=== PATIENT | female | born 1990 | race African-American/Black ===

== ENCOUNTER 2020-04-22 19:58 | Observation (INO) | payer OTHER ==
[2020-04-22] MEDS ORDERED: hydrALAZINE 20 MG/ML VIAL SLOW IVP PRN ×2 (20:21→21:02)
--- NOTE | 2020-04-22 20:36 | PDOC.FPROB ---
FMR OB H&P: HPI - History of Present Illness Chief Complaint: elevated BP, abdominal pain, feet swelling Indentification: 30 yo at 28.4 wga by unknown dating History of Present Illness: Patient has been having abdominal pain and bilateral feet swelling off and on since Thanksgiving that has been progressively worsening. She was at [employer] today trying to get a job and was told she did not qualify because her BP was elevated. Due to her history of pre-eclampsia, this concerned her so she came in. Her abdominal pain is lower and feels like the baby kicking hard. Denies contractions, RUQ/epigastric abdominal pain, LOF, vaginal bleeding. Reports some foul-smelling vaginal discharge lately. Denies headache, SOB. Reports some blurry vision but no scotoma or flashes. Endorses FM. Last appt was 03/21/2020. Primary Care Physician: Out of Town. Recently moved from [place]. Significant other got a job at [employer]. FMR OB H&P: Current - Care : 4 Para: 1021 Gestational age: 28.4 Due date: 07/11/2020 Course/Complications: HIV positive, diagnosed this , on antiretrovirals, reports undetectable viral load recently cHTN versus gHTN vs pre-E, taking labetalol 200mg BID. Taking HTN meds prior to . 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 - Surgical History Sx History: . Denies all other surgeries. - Social History Social History: Denies smoking, drinking, drugs including IV drugs. Recent move from [place]. - Family History Family History: denies FMR OB H&P: Medications - Current Home Medications: Medication Instructions Recorded Confirmed Type Acetaminophen [Tylenol Extra 2 tab PO PRN PRN 04/22/20 04/22/20 History Strength] Labetalol [Normodyne] 2 tab PO BID 04/22/20 04/22/20 History Pnv No.95/Ferrous Fum/Folic AC 1 tab PO DAILY 04/22/20 04/22/20 History [ Caplet] Allergies/Adverse Reactions: Allergies Allergy/AdvReac Type Severity Reaction Status Date / Time No Known Allergies Allergy Verified 04/22/20 20:38 FMR OB H&P: ROS - Review of Systems General: denies: fever/chills, weight/appetite/sleep changes, fatigue Eyes: reports: others (some blurry vision). denies: scotomas, floaters ENT: denies: sore throat Cardiovascular: denies: chest pain Respiratory: denies: cough, shortness of breath Gastrointestinal: reports: abdominal pain. denies: nausea, vomiting Genitourinary (Female): reports: vaginal discharge. denies: dysuria, hematuria, vaginal pain, vaginal bleeding, contractions Musculoskeletal: reports: swelling. denies: pain Neurologic: denies: seizures, weakness Integumentary: denies: rash Hematologic/Lymphatic: denies: prolonged or excessive bleeding Psychological: denies: depression, anxiety FMR OB H&P: Vital Signs - Maternal Vital signs: BP 157/90 HR 78 RR 20 Temp 98.8 - Heart Tones Baseline: 140 (reactive) Variability: moderate Acceleration: present Deceleration: absent FMR OB H&P: Physical Exam - Physical Exam General: NAD, awake, alert and oriented HEENT: normocephalic and atraumatic, no scleral icterus, grossly normal vision, grossly normal hearing Neck: supple, trachea midline Heart: RRR, normal S1/S2, no murmurs/rubs/gallops General: CTAB, no respiratory distress Abdomen: soft, gravid, non-tender Musculoskeletal: pulses present, FROM in all four extremities Neurological: DTR +2 (upper extremities), DTR +3 (lower extremities), no clonus, no focal deficit Skin: no rash, good tugor Lymphatic: no unusual bruising or bleeding Psychiatric: intact recent and remote memory, normal mood and affect FMR OB H&P: A/P Disposition: observe on L&D and monitor blood pressures. Bring in for observation overnight. Discussion: Date/Time: 04/22/202022 30 yo at 28.4 wga by unknown dating Elevated BP in setting of cHTN and hx of preeclampsia - continuous EFM - hydralazine prn - labetalol 300 mg BID , start in AM - CBC, CMP, protein/Cr pending - consider steroids if patient is not responding to BP meds Vaginal discharge - VP3 collected HIV-positive - taking antiretrovirals, may continue home meds while here - ask fiance to bring home meds as these are not likely on formulary Late transfer of care - seems pt had good follow up and care prior to her move. - Request records from [place] - get pt established w/ PCP here prior to d/c Diet: Heart healthy IVF: SL, PO hydration This H&P was discussed with Dr. Steele, who agrees with the above documentation and plan. Signature: Joel Carlos MD PGY-2 Addendum - Attending - Attending Attestation Date/Time: 04/23/20 5736 I personally evaluated the patient and discussed the management with Dr. Carlos. I agree with the History, Examination, Assessment and Plan documented above.
[2020-04-22 20:43] VITALS: BMI 36.6
[2020-04-22 20:48] LABS: #Eosinphils 0.2 thou/uL (0.0-0.7); #Lymphocytes 2.2 thou/uL (1.20-3.40); #Monocytes 0.9 thou/uL (0.11-0.59); #Neutrophils 8.1 thou/uL (1.40-6.50); %Basophils 0.2 % (0.0-1.0); %Eosinophils 1.8 % (0.0-10.0); %Lymphocytes 18.8 % (21.0-51.0); %Neutrophils 71.2 % (42.0-75.0); Hemoglobin 11.7 g/dL (12.0-16.0); Mean Corpuscular HGB CONC 35.7 g/dL (32.0-36.0); Mean Corpuscular Hemoglobin 33.4 pg (27.0-31.0); Mean Corpuscular Volume 93.7 fL (78.0-98.0); Mean Platelet Volume 7.7 fL (7.4-10.4); Platelet Count 204 thou/uL (130-400); RBC Distribution Width 12.9 % (11.5-14.5); White Blood Cell (WBC) Count 11.4 thou/uL (4.8-10.8)
[2020-04-22] MEDS ORDERED: Acetaminophen 500 MG TAB PO PRN (21:02)
[2020-04-22] MEDS ORDERED: Ondansetron PF 4 MG/2 ML Vial IVP PRN (21:02)
[2020-04-22] MEDS ORDERED: Promethazine HCl 25 MG/ML VIAL IM PRN (21:02)
[2020-04-22 21:08] LABS: ALT (SGPT) 11 U/L (8-55); AST (SGOT) 14 U/L (5-34); Albumin 2.6 g/dL (3.5-5.0); Alkaline Phosphatase 80 U/L (40-110); Anion Gap 12 mmol/L (10-20); BUN (Urea Nitrogen) 10 mg/dL (7.0-18.7); Bilirubin, Total Less than 0.2 mg/dL (0.2-1.2); Calc. Creatinine Clearance 138 mL/min (70-130); Calcium 8.3 mg/dL (7.8-10.44); Carbon Dioxide 21 mmol/L (22-29); Chloride 109 mmol/L (98-107); Globulin 3.2 g/dL (2.4-3.5); Glucose 96 mg/dL (70-105); Potassium 3.8 mmol/L (3.5-5.1); Protein, Total 5.8 g/dL (6.0-8.3); Sodium 138 mmol/L (136-145)
[2020-04-22 22:03] VITALS: TEMP 98.8
--- NOTE | 2020-04-23 00:16 | PDOC.BPN ---
- Brief Progress Note Encounter Date: 04/23/20 Encounter Time: 12:20 Labs: BV+, Julia+ CMP wnl. CBC w/ mildly elevated WBC, Hgb 11.7, platelets 204. Non-interpretable urine protein/creatinine ratio given patient's chronic proteinuria in setting of kidney disease. patient's HIV medicines include: Isentress (Raltegravir), abicavir/lamivudine 600-300. Angélica went home to bring meds here. Reviewed Rx interaction check and no interactions between antiretrovirals, labetalol, metronidazole, and clotrimazole found. 2 severe BPs noted over last 2 checks 30 min apart: hydralazine 10mg IV given.
[2020-04-23] MEDS ORDERED: hydrALAZINE 20 MG/ML VIAL SLOW IVP SCH (00:30)
[2020-04-23] MEDS: Betamet Acet/Betamet Na Ph 30 MG/5 ML VIAL IM SCH (01:35)
[2020-04-23 06:20] LABS: SARS-CoV-2 PCR by NAA Not Detected (NotDetected)
--- NOTE | 2020-04-23 06:26 | PDOC.OBAPN ---
FMR OB AP PN: Sub - Interval History Hospital Day: 2 Chief Complaint: elevated BPs Indentification: 30 at 28.5 wga Interval History: Sleeping comfortably. No pain/headache. BPs improved. FMR OB AP PN: Obj - Maternal Vital signs: BPs overnight: 166/91, 167/94-> treated w/ hydralazine 10 mg -> 156/86 160/85, 174/91 -> hydralazine 5 mg-> 144/70 Since falling asleep, pt has had BPs 130s/80s. - Heart Tones Baseline: 120 (reactive) Variability: moderate Acceleration: present Deceleration: absent [place] contractions every: NONE FMR OB AP PN: Exam - Physical Exam General: NAD HEENT: normocephalic and atraumatic, grossly normal hearing Heart: RRR, normal S1/S2 General: CTAB, no respiratory distress Abdomen: soft, gravid Psychiatric: intact recent and remote memory, normal mood and affect FMR OB AP PN: Data - Labs Lab results: Laboratory Results - last 24 hr 04/22/20 04/22/20 04/22/20 20:40 20:40 22:18 WBC 11.4 H RBC 3.50 L Hgb 11.7 L Hct 32.8 L MCV 93.7 MCH 33.4 H MCHC 35.7 RDW 12.9 Plt Count 204 MPV 7.7 Neutrophils % 71.2 Lymphocytes % 18.8 L Monocytes % 8.0 Eosinophils % 1.8 Basophils % 0.2 Neutrophils # 8.1 H Lymphocytes # 2.2 Monocytes # 0.9 H Eosinophils # 0.2 Basophils # 0.0 Sodium 138 Potassium 3.8 Chloride 109 H Carbon Dioxide 21 L Anion Gap 12 BUN 10 Creatinine 0.92 Estimated GFR (MDRD) 86 Glucose 96 Calcium 8.3 Total Bilirubin Less than 0.2 L AST 14 ALT 11 Alkaline Phosphatase 80 Serum Total Protein 5.8 L Albumin 2.6 L Globulin 3.2 Albumin/Globulin Ratio 0.8 L U Random Total Protein Urine Creatinine SARS CoV-2 Rapid Source Nasopharyngeal Swab SARS-CoV-2 RNA (PARTHA) Not Detected 04/22/20 04/22/20 22:25 22:25 WBC RBC Hgb Hct MCV MCH MCHC RDW Plt Count MPV Neutrophils % Lymphocytes % Monocytes % Eosinophils % Basophils % Neutrophils # Lymphocytes # Monocytes # Eosinophils # Basophils # Sodium Potassium Chloride Carbon Dioxide Anion Gap BUN Creatinine Estimated GFR (MDRD) Glucose Calcium Total Bilirubin AST ALT Alkaline Phosphatase Serum Total Protein Albumin Globulin Albumin/Globulin Ratio U Random Total Protein 1374 H Urine Creatinine 256.30 H SARS CoV-2 Rapid Source SARS-CoV-2 RNA (PARTHA) FMR OB AP PN: A/P Disposition: observe on antepartum this AM. Consider d/c later today. 2nd dose of steroids needs to be given later tonight or tomorrow morning. Discussion: Date/Time: 04/23/20 0625 30 yo at 28.4 wga by unknown dating Elevated BP in setting of cHTN and hx of preeclampsia CKD, chronic proteinuria - continuous EFM - hydralazine prn - labetalol 300 mg BID to start today - CBC, CMP WNL - elevated protein/creatinine, however difficult to interpret given chronic proteinuria/CKD per pt. She has had renal bx in the past with no clear cause. - due to persistently elevated BPs which may necessitate delivery, 1st dose of steroids given at 0130 on 04/23 BV & yeast infection - start metronidazole & clotrimazole vaginal cream - trich neg HIV-positive - taking antiretrovirals, may continue home meds while here - awaiting records to see when last viral load was taken. Per pt, last one was undetectable. Late transfer of care - awaiting records - get pt established w/ [facility] here prior to d/c Diet: Heart healthy IVF: SL, PO hydration This H&P was discussed with Dr. Steele, who agrees with the above documentation and plan. Signature: Joel Carlos MD PGY-2
[2020-04-23] MEDS: ABACAVIR PO SCH (09:09)
[2020-04-23] MEDS: LAMIVUDINE PO SCH (09:09)
[2020-04-23] MEDS: metroNIDAZOLE 500 MG TAB PO SCH ×2 (09:09→21:28)
[2020-04-23] MEDS: Labetalol 100 MG TAB PO SCH ×2 (09:09→21:28)
[2020-04-23] MEDS: Raltegravir Potassium 400 MG TAB PO SCH ×2 (09:09→21:28)
--- NOTE | 2020-04-23 09:22 | PRG ---
DATE OF SERVICE: 04/23/2020 Labor and Delivery Progress Note (Antepartum) TIME: Time is 0839, time of evaluation at bedside, roughly 0820. LOCATION: Labor and Delivery, bed 6. DIAGNOSES: 1. HIV positive known status. 2. 28 weeks and 2 days. 3. Prior section. 4. Chronic hypertension. 5. Chronic kidney disease. HOSPITAL COURSE: In brief, I have evaluated the patient at bedside along with Dr. Arenas, who is the on-call resident today. We had an in person checkout with Dr. Swathi Steele, and Dr. Carlos, who initially evaluated this patient on admission. I am aware of the patient's chronic multiple medical issues including HIV positive status. She is on highly active anti-retroviral therapy. PLAN: This morning, our plan is as follows: 1. OB ultrasound here for record. 2. I have ordered a viral load here for record in case delivery is necessary. 3. I reviewed with her the plan for repeat steroids at 24 hours from the , which would be roughly between 1 a.m. and 2 a.m. on the 24 of April. 4. I discussed with her, her diagnosis and the plan to continue her medications. 5. During my bedside evaluation, the patient informed me that she had not had a 1-hour glucose tolerance test with her usual physician. As she is over 28 weeks, and has already received one dose of steroids, I will not get the sugar test now as it is likely to be invalidated by the steroid administration. I did address this with her. 6. No acute evidence of emergent condition at this time. 7. The patient's blood pressure while in the room was systolic in the 140s, diastolics over 90s. Job ID: [id number]
--- NOTE | 2020-04-23 09:37 | PDOC.BPN ---
- Brief Progress Note BRIEF Sono Verbal Report: Sono with 3VC, normal 3 CH, EFW was 1189grams Fluid largest pocket 4
--- NOTE | 2020-04-23 09:48 | ULT ---
US OB Complete STANDARD History: Hypertension. care Comparison: None. Findings: Real-time grayscale, color and spectral analysis was performed transabdominal approach. Single viable intrauterine with average ultrasound age 28 week 5 day with estimated date of delivery July 16, 2020. The ultrasound age and clinical age are concordant. Estimated weight is 2 lbs. 10 oz., 20th percentile. Biometry: Biparietal diameter: 6.93 cm, 27 weeks 6 day Head circumference: 25.63 cm, 27 weeks 6 day Abdominal circumference: 24.48 cm, 28 week 5 day Femur length: 5.16 cm, 27 week 4 day Amniotic fluid index: 7 cm. The placenta is posterior and presentation is vertex. Visualized head, four-chamber heart, stomach, kidneys, cord insertion, bladder, spine, lips/nose, upp er extremities, lower extremity is, three-vessel cord are all normal. Heart rate documented at 139 bpm. Impression: 1. Low amniotic fluid index of 7 cm. 2. Single viable intrauterine with average ultrasound age 28 weeks 0 day with estimated roxana e of delivery July 16, 2020, concordant with clinical age.
--- NOTE | 2020-04-23 18:49 | PDOC.BPN ---
- Brief Progress Note BP checks Location [id number] Lab: VL still pending BPs have been mainly well controlled on labetolol 300mg po BID. There are some sporatic severe BPs but they look like they do not persist (note: BPs in QS) Last MP about 30 min ago was 135/73
[2020-04-23] MEDS ORDERED: Clotrimazole 2% 3 Day Vag Cr 22.2 GM TUBE VAG SCH (21:00)
[2020-04-24] MEDS: Betamet Acet/Betamet Na Ph 30 MG/5 ML VIAL IM SCH (01:47)
--- NOTE | 2020-04-24 06:05 | PDOC.BPN ---
- Brief Progress Note HD2 DISCHARGE NOTE LDR 6 28 weeks 6 days Now s/p BMZ x 2 S. Feels well. O. BPs have been controlled well, one severe range BP was while she was on her cuff (per RN). Viral Load still pending Afebrile. Pulse wnl PE: NAD Pelvic deferred Assessment: HIV Pos, CHTN, chronic renal disease with better BP control on labetolol 300mg po BID. Plan: 1. continue HAART. VL pending. 2. Dr Gabino Carlos with [facility] has agreed to have her follow up there with ID outpatient care 3. Home with same BP regiminine. 4. S/P BMZ 5. Will need serial JULIO CESAR sonos and frequent BP monitoring in clinic Likely home today
--- NOTE | 2020-04-24 06:34 | DIS ---
DATE OF ADMISSION: 04/22/2020 DATE OF DISCHARGE: 04/24/2020 PRINCIPAL DIAGNOSES: 1. Human immunodeficiency virus positive status. 2. at 28 weeks. 3. Chronic hypertension. 4. Chronic renal disease. HOSPITAL COURSE: In brief, the patient was admitted after having a having a blood pressure check in an ambulatory setting that found that she had severe range blood pressures. She has a history of known chronic hypertension. She was sent here for evaluation. She was given betamethasone in case there was a need for urgent delivery. During her observation stay, she also had an ultrasound which showed appropriate growth with an estimated weight of 1180 g with the largest fluid pocket of 4 cm. She is on highly active anti-retroviral therapy for her HIV status, as she was getting care from another location. We ordered a viral load, although she stated that recently it was done at that other location (although we do not have records) and that was undetectable. She did receive her betamethasone dose here. During her evaluation, she was evaluated by Dr. Justina Carlos with [facility] and physicians, who agree to follow her up as an outpatient after discharge. In terms of blood pressure, her blood pressures remained under good control with labetalol 300 mg p.o. b.i.d. She had occasional sporadic severe range of blood pressures, but these were usually due to cuff malposition or her line on the cuff. As she was 28 weeks and 6 days with no evidence of progressive illness, and she was stabilized on oral medication, the plan was made to discharge her home on April 24, 2020 with [facility] and physicians followup. Also as an outpatient, she will have Dr. Hager consulted to continue her care. We will continue with her highly active anti-retroviral therapy and her labetalol as described. I have seen the patient and agree with the plan. The patient is compliant and will seek followup. She will have frequent blood pressure monitoring in the outpatient clinic to closely monitor blood pressure results. Job ID: [id number]
[2020-04-24] MEDS: Labetalol 100 MG TAB PO SCH (09:14)
[2020-04-24] MEDS: Raltegravir Potassium 400 MG TAB PO SCH (09:15)
[2020-04-24] MEDS: metroNIDAZOLE 500 MG TAB PO SCH (09:15)
[2020-04-24] MEDS: ABACAVIR PO SCH (09:16)
[2020-04-24] MEDS: LAMIVUDINE PO SCH (09:16)
[2020-04-24 09:18] VITALS: BP 127/74
[2020-04-25 15:16] LABS: HIV-1 Quantitative, RNA PCR <20 copies/mL (.)
== END 2020-04-24 09:33 | disposition home health service (06) ==
LOC: L&D/OP 19:58 → L&D 21:02
PROVIDERS: ADMIT Obstetrics & Gynecology; ATTEND Obstetrics & Gynecology
DX: O10.213 Pre-existing hypertensive chronic kidney disease complicating pregnancy, third trimester (principal); I12.9 Hypertensive chronic kidney disease with stage 1 through stage 4 chronic kidney disease, or unspecified chronic kidney disease; N18.9 Chronic kidney disease, unspecified; O98.713 Human immunodeficiency virus [HIV] disease complicating pregnancy, third trimester; O23.593 Infection of other part of genital tract in pregnancy, third trimester; B96.89 Other specified bacterial agents as the cause of diseases classified elsewhere; O98.813 Other maternal infectious and parasitic diseases complicating pregnancy, third trimester; B37.9 Candidiasis, unspecified; Z3A.28 28 weeks gestation of pregnancy; Z21 Asymptomatic human immunodeficiency virus [HIV] infection status; Z79.899 Other long term (current) drug therapy; Z20.822 Contact with and (suspected) exposure to COVID-19
CPT/HCPCS: 36415; 76805; 80053; 82570; 84156; 85025; 87480; 87510; 87536; 87635; 87660; 96372; 96374; 96376; 99285; G0378; J0360; J0702; U0003; U0005

== ENCOUNTER 2020-05-14 03:38 | Inpatient (IN) | payer OTHER ==
[2020-05-14] MEDS ORDERED: hydrALAZINE 20 MG/ML VIAL ONE (04:01)
[2020-05-14] MEDS: hydrALAZINE 20 MG/ML VIAL SLOW IVP PRN ×2 (04:28→22:25)
[2020-05-14 04:35] VITALS: TEMP 98.8; BMI 36.6
[2020-05-14] MEDS ORDERED: Labetalol HCl 100 MG/20 ML VIAL SLOW IVP SCH ×3 (05:00→10:30)
[2020-05-14 05:24] LABS: #Basophils 0.1 thou/uL (0.0-0.2); #Eosinphils 0.1 thou/uL (0.0-0.7); #Monocytes 0.8 thou/uL (0.11-0.59); #Neutrophils 6.3 thou/uL (1.40-6.50); %Basophils 0.5 % (0.0-1.0); %Eosinophils 1.4 % (0.0-10.0); %Lymphocytes 21.4 % (21.0-51.0); %Monocytes 8.2 % (0.0-10.0); %Neutrophils 68.5 % (42.0-75.0); Hemoglobin 11.8 g/dL (12.0-16.0); Mean Corpuscular HGB CONC 34.1 g/dL (32.0-36.0); Mean Corpuscular Hemoglobin 31.3 pg (27.0-31.0); Mean Corpuscular Volume 91.6 fL (78.0-98.0); Platelet Count 206 thou/uL (130-400); RBC Distribution Width 12.4 % (11.5-14.5); Red Blood Cell (RBC) Count 3.77 mill/uL (4.20-5.40); White Blood Cell (WBC) Count 9.2 thou/uL (4.8-10.8)
[2020-05-14 05:40] LABS: ALT (SGPT) 21 U/L (8-55); AST (SGOT) 23 U/L (5-34); Albumin 2.3 g/dL (3.5-5.0); Alkaline Phosphatase 105 U/L (40-110); Anion Gap 14 mmol/L (10-20); BUN (Urea Nitrogen) 14 mg/dL (7.0-18.7); Bilirubin, Total 0.2 mg/dL (0.2-1.2); Calc. Creatinine Clearance 137 mL/min (70-130); Calcium 8.7 mg/dL (7.8-10.44); Carbon Dioxide 18 mmol/L (22-29); Chloride 110 mmol/L (98-107); Globulin 3.2 g/dL (2.4-3.5); Glucose 84 mg/dL (70-105); Potassium 3.8 mmol/L (3.5-5.1); Protein, Total 5.5 g/dL (6.0-8.3); Sodium 138 mmol/L (136-145); Uric Acid 6.9 mg/dL (2.6-6.0)
[2020-05-14] MEDS ORDERED: Bicitra 30 ML UDCUP PO PRN (05:47)
[2020-05-14] MEDS ORDERED: Acetaminophen 500 MG TAB PO PRN (05:47)
[2020-05-14] MEDS ORDERED: Promethazine HCl 25 MG/ML VIAL IM PRN ×2 (05:47→11:34)
[2020-05-14] MEDS ORDERED: Ondansetron PF 4 MG/2 ML Vial IVP PRN ×2 (05:47→11:34)
[2020-05-14] MEDS ORDERED: Famotidine/PF 20 mg/2ml Vial SLOW IVP PRN (05:47)
[2020-05-14] MEDS ORDERED: Docusate 100 MG CAP PO PRN (05:47)
--- NOTE | 2020-05-14 05:47 | PDOC.BPN ---
- Brief Progress Note Encounter Date: 05/14/20 Encounter Time: 05:45 per sono: EFW 3lb CYNTHIA 3.4 cm Doppler S:D 2.85 Admit to L&D. Likely plan for repeat . Continue to control BP w/ IV labetalol.
--- NOTE | 2020-05-14 05:48 | PDOC.FPROB ---
FMR OB H&P: HPI - History of Present Illness Chief Complaint: high blood pressure History of Present Illness: Pt is a 30 yo F at 31.5 wga by 7.1 wk sono with PMH HIV, HSV, cHTN, pre E with previous , autoimmune kidney disease who presents to L&D after waking up feeling short of breath. She subsequently took her BP at home and found it to be 200 SBP so she came to the hospital. She endorses compliance with her home Labetalol 300mg TID for her cHTN. She endorses good movement, no contractions, VB, VD, LOF. Primary Care Physician: Terrance FMR OB H&P: Current - Care : 4 Para: 1 Gestational age: 31.5 Due date: 07/11/20 Dating Criteria: 7.1 wk sono - OB Labs Blood type: O RH: positive Antibody Screen: negative HIV: positive RPR: negative HepBsAg: negative Rubella: immune Gonorrhea: negative Chlamydia: negative H&H: 11.4/32.7 Platelets: 222 Additional labs: CD4 count 726 Absolute lymphocytes 1879 - Additional Ultrasound Additional: growth restriction at 3%, low-normal CYNTHIA at 7.5 with MVP at 3.1 FMR OB H&P: History - Past Medical History PMH: HIV, HSV, autoimmune kidney disease, cHTN - OB History OB History: On labetalol 300 mg TID for cHTN Supposed to start Valtrex at 33 wga for history of HSV OB hx: spontaneous at 8 weeks in 2019 history of c section 2/2 pre E in 2006 elective AB in 2004 - 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 Menarche 12 History of HSV last outbreak 10 years ago - Surgical History Sx History: c section 2006 D&C elective ab - Social History Social History: former smoker: 6-12 months ago denies drinking history - Family History Family History: mother with hole in her heart FMR OB H&P: Medications - Current Home Medications: Medication Instructions Recorded Confirmed Type Pnv No.95/Ferrous Fum/Folic AC 1 tab PO DAILY 04/22/20 05/14/20 History [ Caplet] Abacavir Sulfate/Lamivudine 1 each PO DAILY 05/14/20 05/14/20 History [Abacavir-Lamivudine 600-300 mg] Labetalol [Normodyne] 300 mg PO TID 05/14/20 05/14/20 History Raltegravir Potassium [Isentress] 400 mg PO BID 05/14/20 05/14/20 History Allergies/Adverse Reactions: Allergies Allergy/AdvReac Type Severity Reaction Status Date / Time No Known Allergies Allergy Verified 05/14/20 04:03 FMR OB H&P: ROS - Review of Systems General: denies: fever/chills, weight/appetite/sleep changes Eyes: reports: vision changes (intermittent blurry vision) Cardiovascular: denies: chest pain, edema Respiratory: reports: shortness of breath. denies: cough Gastrointestinal: denies: abdominal pain, nausea, vomiting Genitourinary (Female): denies: incontinence, dysuria, vaginal discharge, vaginal bleeding, contractions, vaginal pressure Musculoskeletal: denies: tenderness, swelling, decrease range of motion Neurologic: denies: syncope, seizures, weakness, headache Psychological: denies: depression, anxiety FMR OB H&P: Vital Signs - Maternal Vital signs: Vital Signs - First Documented Temp Pulse Resp BP Pulse Ox 98.8 F 60 18 201/115 H 98 05/14/20 04:01 05/14/20 04:01 05/14/20 04:01 05/14/20 04:01 05/14/20 04:01 - Heart Tones Baseline: 120 Variability: moderate Acceleration: present Deceleration: absent Category: category 1 [place] contractions every: no contractions FMR OB H&P: Physical Exam - Physical Exam General: NAD, awake, alert and oriented HEENT: normocephalic and atraumatic, PERRLA, EOMI Neck: supple Breast: no skin changes Heart: RRR, normal S1/S2, pulses present, no edema General: CTAB, no respiratory distress, good air movement Abdomen: soft, gravid, non-tender Musculoskeletal: pulses present, FROM in all four extremities Neurological: cranial nerves II through XII intact, DTR +2, no focal deficit Skin: good tugor, capillary refill <2 seconds Psychiatric: intact recent and remote memory, good judgement and insight, normal mood and affect FMR OB H&P: Results - Labs Lab results: Laboratory Results - last 24 hr 05/14/20 05/14/20 05/14/20 05:07 05:07 05:07 WBC 9.2 RBC 3.77 L Hgb 11.8 L Hct 34.6 L MCV 91.6 MCH 31.3 H MCHC 34.1 RDW 12.4 Plt Count 206 MPV 8.0 Neutrophils % 68.5 Lymphocytes % 21.4 Monocytes % 8.2 Eosinophils % 1.4 Basophils % 0.5 Neutrophils # 6.3 Lymphocytes # 2.0 Monocytes # 0.8 H Eosinophils # 0.1 Basophils # 0.1 Sodium 138 Potassium 3.8 Chloride 110 H Carbon Dioxide 18 L Anion Gap 14 BUN 14 Creatinine 0.93 Estimated GFR (MDRD) 85 Glucose 84 Uric Acid 6.9 H Calcium 8.7 Total Bilirubin 0.2 AST 23 ALT 21 Alkaline Phosphatase 105 Lactate Dehydrogenase 209 Serum Total Protein 5.5 L Albumin 2.3 L Globulin 3.2 Albumin/Globulin Ratio 0.7 L FMR OB H&P: A/P Disposition: 30 yo F at 31.5 wga by 7.1 wk sono who presents with high blood pressure #elevated BP -patient with history of cHTN on Labetalol 300mg TID at home -history of Pre E resulting in a c section with previous -will order sono for growth with umbilical dopplers and CYNTHIA -order Pre-E labs -Hydralazine, Labetalol PRN -continue home meds #HIV -aware, well controlled on HAART -CD4 in clinic recently 726 #History of HSV -aware, start ppx at 36 wga or 4 weeks prior to delivery #Autoimmune kidney disease -aware #IUGR -aware, patient at 3rd percentile -sono as above Dispo: pending labs and sono Discussion: Date/Time: 05/14/20 9943 This H&P was discussed with Dr. Carlos and Dr. Carlisle who agree with the above documentation and plan. Addendum - Attending - Attending Attestation Date/Time: 05/14/20 9286 I personally evaluated the patient and discussed the management with Dr. Ramon/Terrance I agree with the History, Examination, Assessment and Plan documented above with any addition or exceptions noted below - 30 yo @31.5 weeks with cHTN, autoimmune nephropathy and HIV presented c/o SOB and after checking BP at home and found it to be very elevated. (+)WERNER (+) FM. Afebrile BP 160-200/90-103 A/P: 1) IUP @ 31.5 weeks with cHTN with superimposed pre-eclampsia- multiple severe range BPs; has received several doses of labetolol with improvement. Will plan to proceed with repeat . Started on magnesium. Monitor I/Os. 2) HIV- undetectable viral load on antiretrovirals. Will start AZT per protocol. 3) cHTN- continue labetolol at decreased dose. 4) Autoimmune nephropathy - continue to monitor GFR
[2020-05-14] MEDS ORDERED: Zidovudine 200 MG/20 ML VIAL IVPB SCH ×2 (06:00)
[2020-05-14] MEDS ORDERED: hydrALAZINE 20 MG/ML VIAL SLOW IVP SCH ×2 (06:00→10:30)
[2020-05-14] MEDS ORDERED: CEFAZOLIN 2 GM in Premix Bag 1 BAG IVPB SCH (06:00)
[2020-05-14] MEDS ORDERED: Calcium Gluc 4.6 MEQ/10 ML (100 MG/ML) SLOW IVP PRN (06:16)
[2020-05-14] MEDS ORDERED: Magnesium Sulfate 20 gm/500 ml 20 GM/500 ML BAG ONE (06:25)
[2020-05-14 06:29] LABS: HBSAg Index 0.15 S/CO (0-0.99); Hep B Surf Ag Non-Reactive S/CO (NonReactive); Syphilis Antibody Nonreactive (Nonreactive); Syphilis Antibody Index 0.01 S/CO (<1.00 Non-Reactive)
[2020-05-14] MEDS ORDERED: Magnesium Sulfate 20 GM/WATER 500 ML BAG IVPB SCH (06:30)
[2020-05-14] MEDS: Magnesium Sulfate 20 gm/500 ml 20 GM/500 ML BAG IVPB SCH ×2 (06:44→14:46)
--- NOTE | 2020-05-14 07:02 | PDOC.BPN ---
- Brief Progress Note Patient started on Mag, AZT ordered, no indication for steroids as patient received 3 weeks ago Plan for c section later today, at least 3 hours after AZT. Plan discussed with Dr Carlos and Dr Santoyo who agree
[2020-05-14] MEDS ORDERED: Zidovudine 400 MG in Dextrose 5% in Water 250 ML IVPB SCH (07:30)
[2020-05-14 08:10] LABS: SARS-CoV-2 NAA Rapid Test Not Detected (NotDetected)
[2020-05-14 08:12] LABS: Creatinine, Urine 74.16 mg/dL (47-110)
[2020-05-14] MEDS: Lactated Ringer's 1,000 ML IV SCH ×2 (09:00→23:03)
[2020-05-14] MEDS ORDERED: Morphine PF 10 MG/10 ML VIAL ONE (09:57)
[2020-05-14] MEDS ORDERED: Ketorolac Tromethamine 30 MG/ML VIAL ONE (09:57)
[2020-05-14] MEDS ORDERED: Oxytocin 10 UNITS/ML VIAL ONE ×2 (09:57→11:01)
[2020-05-14] MEDS ORDERED: PHENYLEPHRINE-NS 100 MCG/ML 10 ML SYRINGE ONE ×2 (09:57→11:21)
[2020-05-14] MEDS ORDERED: Ondansetron PF 4 MG/2 ML Vial ONE (09:57)
[2020-05-14] MEDS ORDERED: Fentanyl 100 MCG/2 ML VIAL ONE (09:57)
--- NOTE | 2020-05-14 09:57 | PDOC.BPN ---
- Brief Progress Note Encounter Date: 05/14/20 Encounter Time: 09:50 Patient having severe pressures x2. Very early this AM hydralazine 5 and 10 were given followed by labetalol 20, 40, and 80 mg respectively. Will give hydralazine 10mg x1 now. Continue magnesium, AZT, and LR. Plan for at 11:00.
--- NOTE | 2020-05-14 10:55 | ULT ---
LIMITED OBSTETRICAL ULTRASOUND FOLLOWUP: Date: 05/14/2020 INDICATION: High maternal blood pressure. History of oligohydramnios and IUGR. FINDINGS: There is a single, live intrauterine gestation in vertex presentation. The placenta is posterior. The cervix was not well seen. The CYNTHIA was 3.4 cm. Cardiac activity was 144 beats/minute. Sampled umbilic al artery demonstrated a low resistance waveform with peak systolic velocity of 43.9 cm/second, resis tive index of 0.65, and a systolic/diastolic ratio of 2.85. Biparietal diameter was 7.35 cm, giving an estimated gestational age of 29 weeks and 3 days. Head circumference was 26.87 cm, giving an estimated gestational age of 29 weeks and 2 days. Abdominal circumference was 22.76 cm, giving an estimated gestational age of 28 weeks and 5 days. Femoral length was 5.64 cm, giving an estimated gestational age of 29 weeks and 5 days. Estimated weight is 1,353 gm +/- 200 gm (3 lbs. 0 oz. +/- 7 oz.) (first percentile). The average gestational age by ultrasound is 29 weeks and 2 days with an estimated due date is 2020. Clinical age is 31 weeks and 5 days with estimated due date of 07/11/2020. Limited visualization of the bladder, stomach, and kidneys were unremarkable appearing. IMPRESSION: 1. Single, live intrauterine gestation in vertex presentation. 2. Small for gestational age. 3. Oligohydramnios. POS: BH
[2020-05-14] MEDS ORDERED: Promethazine HCl 25 MG/ML VIAL ONE (11:14)
[2020-05-14] MEDS ORDERED: Meperidine HCl/PF 25 MG/ML VIAL SLOW IVP PRN (11:34)
[2020-05-14] MEDS ORDERED: Promethazine HCl 25 MG SUPP PR PRN (11:34)
[2020-05-14] MEDS ORDERED: Naloxone HCl 0.4 mg/ml Vial IVP PRN ×2 (11:34)
[2020-05-14] MEDS ORDERED: Ondansetron HCl/PF 4 MG/2 ML Vial IVP PRN (11:34)
[2020-05-14] MEDS ORDERED: diphenhydrAMINE 50 MG/ML VIAL IVP PRN (11:34)
[2020-05-14] MEDS ORDERED: Naloxone HCl 0.4 mg/ml Vial IV PRN (11:34)
[2020-05-14] MEDS ORDERED: HYDROmorphone 2 MG/ML VIAL SLOW IVP PRN (11:34)
[2020-05-14] MEDS ORDERED: L&D-Morphine 4 MG/ML VIAL SLOW IVP PRN (11:34)
[2020-05-14] MEDS ORDERED: Communication Order-Pharmacy FS SCH (11:45)
--- NOTE | 2020-05-14 12:56 | PDOC.OPDEL ---
OB Operative/Delivery Note Anesthesia: spinal - Findings A Sex: female - 1 min: 1 - 5 min: 9 - Additional Findings/Plan Compilations/Other Findings: Date of Procedure: 05/14/2020 Resident Surgeon: Justina Carlos, PGY2 (continuity) Brim Shaper Surgeon: Miriam Blanco, PGY1 Attending Surgeons: Dr. Santoyo, Dr. Guru Rutledge Procedure: Repeat low vertical caesarean section with hysterotomy involving active segment of uterus Preoperative Diagnosis: 1) intrauterine 2) Previous x1 3) Chronic hypertension with superimposed pre-eclampsia with severe features 4) Oligohydramnios 5) Intrauterine growth restriction 6) HIV-1 positive, compliant with anti-retrovirals 7) C1Q nephropathy Postoperative Diagnosis: 1) intrauterine , delivered 2) Previous x1 3) Chronic hypertension with superimposed pre-eclampsia with severe features 4) Oligohydramnios 5) Intrauterine growth restriction 6) HIV-1 positive, compliant with anti-retrovirals 7) C1Q nephropathy Anesthesia: spinal Quantitative Blood Loss: 975 ml Complications: None Specimens: 1. Grossly normal placenta sent for pathology 2. Cord blood sent to lab for blood type 3. Cord gases Findings: Grossly normal albeit female with Apgars of 1 and 9. C PAP resuscitation required and sent to NICU. Drains: Lino to gravity draining clear urine Indications: The patient is a 30 year old female at 31.5 weeks gestation dated by LMP consistent with 7.2 week sono who presented to L&D for elevated blood pressures and found to have oligohydramnios and pre-eclampsia with severe features. Procedure in Detail: After risks, benefits, and alternatives were explained to the patient, she gave informed consent. Pre-operative antibiotics included Cefazolin 2 gram IV and zidovudine 2 mg/kg loading dose followed by 1 mg/kg/hr for at least 3 hours prior to delivery. Antepartum events included course of steroids (x2) for lung maturity on 04/22/2020, so this was not repeated on this admission. Magnesium IV was started for pre-eclampsia. The patient was taken to the operating room, and spinal anesthesia was initiated. She was placed in the supine position with a left tilt and prepped and draped in usual sterile fashion. A Pfannenstiel incision was made with a scalpel and carried down to the level of the fascia which was sharply nicked. The fascial cut was extended bilaterally with Pepe scissors. The inferior and superior edges of the cut fascial edges were elevated with Pretty clamps, and the underlying rectus muscles were sharply dissected free. There were extensive adhesions between the fascia and rectus muscles. The recti were divided digitally and retracted manually. The peritoneum was entered using hemostats and Metzenbaum scissors. Care was taken to identify and avoid the bladder. Bladder blade was placed. Adhesions were noted between abdominal wall and the uterus, especially on the left side of the uterus. Several of these were taken down using Bovie cautery. A low vertical incision was made with the scalpel, and the uterus was entered bluntly in the midline. Amniotomy was performed with Allis clamp; clear fluid was seen. The hysterotomy was extended manually. To create room due to adhesions, the hysterotomy was extended superiorly into the active uterine segment with bandage scissors. The infant was noted to be vertex and was easily delivered by fundal pressure. Nuchal cord x1. Cord was immediately clamped and cut, and the female infant was taken to the NICU team at the [facility]. Cord segment was clamped for cord gases. Cord blood was obtained. Placenta was delivered spontaneously with fundal massage and cord traction. Placenta was found to be intact with 3 vessel cord and sent to pathology. Attempt was made to externalize the uterus, but this was not possible due to adhesions. The endometrium was curetted with a dry lap. The uterus was closed in two layers, first with a running locking #0 Chromic suture followed by a running non-locking #0 Chromic suture in a baseball stitch fashion. Two figure of eight sutures using #0 Chromic were used to achieve hemostasis. The abdomen was irrigated with saline and suctioned free of clots. Arrista powder was placed over the hysterotomy. The abdominal muscles and underside of the fascia were carefully inspected for bleeders, and all bleeders were cauterized. The remaini ng Arrista powder was used on rectus muscles. The area around inferior aspect of the rectus muscles was again irrigated and suctioned free of clots. The fascia was closed with a running non-locking 0-Vicryl suture with the exception of locking the first stitch at each corner. The subcutaneous tissue was irrigated, and bleeders were cauterized. The subcutaneous spaced was closed using 2-0 plain gut suture in an interrupted fashion. The skin was approximated with emily, and a pressure dressing was placed. All counts were correct. The patient tolerated the procedure well and was taken to the LICU in stable condition. Patient is to remain on magnesium for 24 hours . Post delivery plan: recovery in LICU Addendum - Attending - Attending Attestation Date/Time: 05/14/20 [id number] I was present, assisted and supervised the repeat with low vertical uterine incision for this 30 yo @31.5 weeks for cHTN with superimposed pre-eclampsia with severe features. Viable female in vertex presentation. Apgars 1/9. QBL 975 mL. Residents: Terrance/Bella
--- NOTE | 2020-05-14 16:36 | PDOC.BPN ---
- Brief Progress Note Encounter Date: 05/14/20 Encounter Time: 16:36 Magnesium Check and 4 hr PP C/S check S: Patient doing well, no acute concerns. She denies WERNER, vision changes, difficulty breathing, abdominal pain, vaginal bleeding. O: VS: BP Max SBP: 150, Max DBP 96 UOP: 100 over last 3 hours (30, 40, 30) Exam: Cardiac: RRR no MRG Pulm: CTAB Abdomen: incision bandaged, CDI, +BS, no tenderness, soft, nondistended Neuro: Patellar reflexes 2+ bilaterally, no ankle clonus A/P: Post op repeat low vertical CS - doing well post op, denied BM - pain well controlled - Incision CDI - continue current management cHTN on magnesium - Severe range pressures frequently before delivery - Elevated BP with no severes while on Mag - continue mag, monitor UOP closely - Consider Lasix if UOP decreases-2 consecutive hours of 30ml or less UOP Discussed with Dr. Santoyo
--- NOTE | 2020-05-14 21:05 | PDOC.BPN ---
- Brief Progress Note Mag check has had two readings of severe range pressures 168/97 at 1911 and 169/92 at 2040 no PRN meds given urine output 175mL/3 hours no symptoms of WERNER, SOB, CP, RUQ pain, nausea PE: A&Ox3, non labored breathing, no abdominal pain or tenderness to palpation, no LE edema, reflexes 2+ Repeat check in 4 hours.
[2020-05-14] MEDS: Ketorolac Tromethamine 30 MG/ML VIAL IVP SCH (21:53)
[2020-05-14] MEDS ORDERED: Labetalol 100 MG TAB PO SCH (22:45)
[2020-05-14 23:03] VITALS: BP 151/84
[2020-05-15] MEDS: Magnesium Sulfate 20 gm/500 ml 20 GM/500 ML BAG IVPB SCH (00:53)
--- NOTE | 2020-05-15 02:27 | PDOC.BPN ---
- Brief Progress Note Mag check BP improved at 117/66 and 115/63 as last 2 readings. no PRN meds given urine output 50 mL/hr and 75 mL/hr as last recorded no symptoms of WERNER, SOB, CP, RUQ pain, nausea. resting comfortably in bed sleeping PE: A&Ox3, non labored breathing, no abdominal pain or tenderness to palpation, no LE edema, reflexes 2+ Repeat check in 4 hours. Will give 20IV Lasix for poor urine output.
[2020-05-15] MEDS ORDERED: Furosemide 20 MG/2 ML VIAL SLOW IVP SCH (02:30)
[2020-05-15] MEDS: Ketorolac Tromethamine 30 MG/ML VIAL IVP SCH ×2 (04:41→07:15)
--- NOTE | 2020-05-15 05:33 | PDOC.BPN ---
- Brief Progress Note [facility] check BP improved at 119-134/70. no PRN meds given urine output 50mL/hr, 50 mL/hr and 75 mL/hr as last recorded no symptoms of WERNER, SOB, CP, RUQ pain, nausea. resting comfortably in bed sleeping PE: A&Ox3, non labored breathing, no abdominal pain or tenderness to palpation, no LE edema, reflexes 2+ Repeat check in 4 hours. [facility] will have been running for 24 hours at noon on 05/15. Lasix has not been given yet, so will follow up urine output response with that 20mgIV dose at next check.
[2020-05-15] MEDS ORDERED: Ibuprofen 800 MG TAB PO SCH (06:00)
--- NOTE | 2020-05-15 06:03 | PDOC.PP ---
Post Progress Note Post Day #: 1 Subjective: Patient had severe range pressures around 5 pm, 7pm, and 1030 pm last night. She was given her oral labetalol and hydralazine push. Lasix given when in room. Pressures have been well controlled <140/90 since 1030 pm. Patient resting comfortably. PO intake tolerated: yes (clears only) Flatus: no Ambulation: no Vital Signs (12 hours) Pulse BP 05/14/20 23:02 80 151/84 H 05/14/20 22:25 74 172/102 H Weight Weight 99.79 kg - Physical Examination General: NAD Cardiovascular: no m/r/g Respiratory: clear to auscultation bilaterally, non-labored breathing Abdominal: + bowel sounds, lochia (minimal), no distention, appropriately TTP Skin: CS incision dry & intact, no rash (dressing not disturbed) Neurological: no gross focal deficits (DTRs 1+, no clonus) Result Diagrams: 05/15/20 08:50 05/14/20 05:07 Additional Labs: Post Labs Hep Bs Antigen Non-Reactive S/CO (NonReactive) 05/14/20 05:07 Blood Type O POSITIVE 05/14/20 06:22 - Assessment/Plan 30 yo G4 now P0222 delivered at 31.5 wga: POD #1 s/p repeat low vertical C/S - postop hgb pending, QBL 975mL, minimal bleeding overnight - awaiting ambulation and to tolerate PO since still on magnesium. cHTN, superimposed pre-eclampsia w/ severe features - on magnesium, started 3-4 hours prior to delivery, discontinue at 1200 on 05/15 - BPs improved with oral labetalol, continue home dose, consider BID if pressur es running low - urine output 50-75 mL/hour. Lasix given this AM. Continue to monitor. - Consider adding HCTZ vs losartan/HCTZ vs other HTN med HIV-1 positive status - continue HAART immediately. - do not recommend . Donor milk preferred. C1q nephropathy - nephrology f/u outpatient Dispo: continue inpatient mgmt. Will need to be transferred to [facility]. in the NICU, also plan for transfer to [facility]. Addendum - Attending - Attending Attestation Date/Time: 05/15/20 1001 I personally evaluated the patient and discussed the management with Dr. Carlos I agree with the History, Examination, Assessment and Plan documented above with any addition or exceptions noted below - Patient complaining of throat feeling swollen. Denies any pain or difficulty swallowing. Afebrile VSS. U/O 30-50mL/hr improved after lasix to 150-200 mL A/P: 1) POD #1 s/p repeat C/S with low vertical incision - continue current care. 2) cHTN with superimposed pre-eclampsia - continue magnesium; AM labs pending. Continue to monitor urine output. 3) HIV- resume antiretrovirals. 4) Possible esophagitis- will give trial of nystatin 5) C1Q nephropathy- continue to monitor.
[2020-05-15] MEDS ORDERED: HYDROcodone/Acetaminophen 5/325 mg Tablet PO PRN ×2 (06:13)
[2020-05-15] MEDS ORDERED: Magnesium Sulfate 20 gm/500 ml 20 GM/500 ML BAG IVPB SCH (06:13)
[2020-05-15] MEDS ORDERED: Acetaminophen 325 MG TAB PO PRN (06:13)
[2020-05-15] MEDS ORDERED: Lanolin Ointment 7 GM TUBE TOP PRN (06:13)
[2020-05-15] MEDS ORDERED: Calcium Gluconate 4.6 MEQ in Sodium Chloride 0.9% 100 ML IVPB PRN (06:13)
[2020-05-15] MEDS ORDERED: Ondansetron PF 4 MG/2 ML Vial IVP PRN (06:13)
[2020-05-15] MEDS ORDERED: hydrALAZINE 20 MG/ML VIAL SLOW IVP PRN (06:13)
[2020-05-15] MEDS ORDERED: Raltegravir Potassium 400 MG TAB PO SCH ×2 (06:45→21:00)
[2020-05-15] MEDS ORDERED: Docusate Calcium (SURFAK) 240 MG CAP PO SCH ×2 (06:45→21:00)
[2020-05-15] MEDS ORDERED: Labetalol 100 MG TAB PO SCH ×3 (06:45→21:00)
[2020-05-15] MEDS ORDERED: Ferrous Sulfate 325 MG TAB PO SCH ×2 (06:45→21:00)
--- NOTE | 2020-05-15 08:20 | PDOC.BPN ---
- Brief Progress Note Encounter Date: 05/15/20 Encounter Time: 08:20 30 yo G4 now P0222 delivered at 31.5 wga: Mag check BP ranged 100-130/70s, one elevated at 145/85 no PRN meds given urine output 300 ml/hr, net -175. S/p Lasix 20 this am no symptoms of WERNER, SOB, CP, RUQ pain, nausea. resting comfortably in bed sleepi ng PE: A&Ox3, non labored breathing, no abdominal pain or tenderness to palpation, no LE edema, reflexes 2+ Mag will have been running for 24 hours at noon on 05/15. Repeat check in 4 hours
--- NOTE | 2020-05-15 08:42 | PDOC.DS.DS ---
Provider Date of Admission: 05/14/20 08:24 Admitting Provider: Betsy Santoyo MD Primary Care Physician: CLAUDIA Moy Hospital Course: 30 yo G4 now P0222 delivered viable F at 31.5 wga via rLVCS at 1140 on 05/14 Lab Results: 05/14/20 05:07 05/14/20 05:07 Abnormal Lab Results - Last 48 hrs 05/14/20 05:07: Chloride 110 H, Carbon Dioxide 18 L, Uric Acid 6.9 H, Serum Total Protein 5.5 L, Albumin 2.3 L, Albumin/Globulin Ratio 0.7 L 05/14/20 05:07: RBC 3.77 L, Hgb 11.8 L, Hct 34.6 L, MCH 31.3 H, Monocytes # 0.8 H 05/14/20 07:30: U Random Total Protein 372 H Vitals: Vital Signs (12 hours) Pulse BP 05/15/20 07:48 80 151/84 H 05/14/20 23:02 80 151/84 H 05/14/20 22:25 74 172/102 H Weight Weight 99.79 kg Physical Exam: The patient was seen and examined on the day of discharge. Problem Assessment: Patient on mag due to preE superimposed on cHTN. Next mag check at 1200 when mag will be discontinued after 24 hours. Urine output improved. Will transfer patient to [facility] for continued care. Plan Home Medications: Medication Instructions Recorded Confirmed Type Pnv No.95/Ferrous Fum/Folic AC 1 tab PO DAILY 04/22/20 05/14/20 History [ Caplet] Abacavir Sulfate/Lamivudine 1 each PO DAILY 05/14/20 05/14/20 History [Abacavir-Lamivudine 600-300 mg] Labetalol [Normodyne] 300 mg PO TID 05/14/20 05/14/20 History Raltegravir Potassium [Isentress] 400 mg PO BID 05/14/20 05/14/20 History Abacavir Sulfate [Ziagen] 600 mg PO DAILY tab 05/15/20 Rx Acetaminophen [Tylenol Regular 650 mg PO Q4H PRN tab 05/15/20 Rx Strength] Docusate Calcium [Surfak] 240 mg PO BID cap 05/15/20 Rx Ferrous Sulfate [Feosol] 325 mg PO BID tab 05/15/20 Rx HYDROcodone Bit/APAP 5/325 [[place]] 1 tab PO Q4H PRN tab 05/15/20 Rx HYDROcodone Bit/APAP 5/325 [[place]] 2 tab PO Q4H PRN tab 05/15/20 Rx Ibuprofen [Motrin] 800 mg PO Q8HR tab 05/15/20 Rx Ketorolac Tromethamine [Toradol] 30 mg IVP Q6H vial 05/15/20 Rx Ondansetron HCl/PF [Zofran] 4 mg IVP Q4H PRN vial 05/15/20 Rx Vitamin 1 tab PO DAILY tab 05/15/20 Rx Promethazine HCl [Phenergan] 12.5 mg IM Q4H PRN vial 05/15/20 Rx Promethazine HCl [Phenergan] 25 mg MT Q4H PRN supp 05/15/20 Rx diphenhydrAMINE [Benadryl] 12.5 mg IVP Q4H PRN vial 05/15/20 Rx hydrALAZINE [Apresoline] 5 mg SLOW IVP ONE PRN vial 05/15/20 Rx lamiVUDine [Epivir] 300 mg PO DAILY tab 05/15/20 Rx Allergies: No Known Allergies Allergy (Verified 05/14/20 04:03) Nourishment:: Other (clear liquid diet ) Therapies:: Not Applicable Equipment/Supplies:: Not Applicable IV Therapy:: Not Applicable Referrals: Unknown,Unknown [Primary Care Provider] - Disposition: OTHER HOSPITAL IN [facility] MEASURES:: N/A Did you prescribe antithrombotic therapy?: No Specify reason for no DC antithrombotic therapy: Treatment not indicated Did you prescribe anticoagulant for A Fib/Flutter?: No Specify reason for no DC anticoagulant: Treatment not indicated Did you prescribe a statin medication?: No Specify reason for no DC statin medication: Treatment not indicated
[2020-05-15] MEDS ORDERED: Nystatin 500,000 UNITS/5 ML UDCUP SSW SCH (09:00)
[2020-05-15] MEDS ORDERED: ABACAVIR SULFATE PO SCH (09:00)
[2020-05-15] MEDS ORDERED: LAMIVUDINE PO SCH (09:00)
[2020-05-15] MEDS ORDERED: Adacel (T-DAP) 0.5 ML SYRINGE IM ONE (09:00)
[2020-05-15] MEDS ORDERED: [UNRECOGNIZED DRUG - REMARK] PO SCH (09:00)
[2020-05-15] MEDS ORDERED: [UNRECOGNIZED DRUG - OTHER] PO SCH (09:00)
[2020-05-15] MEDS ORDERED: Prenatal Vitamin 1 TAB PO SCH (09:00)
[2020-05-15 09:02] LABS: Hemoglobin 9.7 g/dL (12.0-16.0); Mean Corpuscular HGB CONC 34.6 g/dL (32.0-36.0); Mean Corpuscular Hemoglobin 32.5 pg (27.0-31.0); Mean Corpuscular Volume 94.1 fL (78.0-98.0); Mean Platelet Volume 7.9 fL (7.4-10.4); Platelet Count 178 thou/uL (130-400); RBC Distribution Width 12.6 % (11.5-14.5); Red Blood Cell (RBC) Count 2.99 mill/uL (4.20-5.40); White Blood Cell (WBC) Count 9.9 thou/uL (4.8-10.8)
== END 2020-05-15 09:20 | disposition short-term general hospital (02) | DRG 787 ==
LOC: L&D/OP 03:38 → L&D 08:24
PROVIDERS: ADMIT Family Medicine; ATTEND Family Medicine
PROC: 10D00Z1 Extraction of Products of Conception, Low, Open Approach (ICD-10-PCS; principal; 2020-05-14)
DX: O60.14X0 Preterm labor third trimester with preterm delivery third trimester, not applicable or unspecified (principal); O41.03X0 Oligohydramnios, third trimester, not applicable or unspecified; O10.92 Unspecified pre-existing hypertension complicating childbirth; O98.72 Human immunodeficiency virus [HIV] disease complicating childbirth; O26.833 Pregnancy related renal disease, third trimester; N03.3 Chronic nephritic syndrome with diffuse mesangial proliferative glomerulonephritis; Z20.822 Contact with and (suspected) exposure to COVID-19; O34.212 Maternal care for vertical scar from previous cesarean delivery; O69.81X0 Labor and delivery complicated by cord around neck, without compression, not applicable or unspecified; O36.5930 Maternal care for other known or suspected poor fetal growth, third trimester, not applicable or unspecified; O11.4 Pre-existing hypertension with pre-eclampsia, complicating childbirth; Z21 Asymptomatic human immunodeficiency virus [HIV] infection status; Z3A.31 31 weeks gestation of pregnancy; Z37.0 Single live birth; Z79.899 Other long term (current) drug therapy; Z87.891 Personal history of nicotine dependence
CPT/HCPCS: 0240U; 36415; 51702; 76816; 80053; 82570; 83615; 83735; 84156; 84550; 85025; 85027; 86780; 86850; 86900; 86901; 87340; 88307; 99285; J0360; J0690; J1885; J1940; J2270; J2405; J2550; J3010; J3475; J3485; J7070